=== PATIENT | female | born 1995 | race Caucasian/White ===

== ENCOUNTER 2017-03-02 19:24 | Inpatient (IN) | payer OTHER ==
[~2017-03-02] VITALS: Ht 160 cm; Wt 82.0 kg
[~2017-03-02 19:24] MED LIST: APRI1 EACH PO; KEFLEX500 MG PO; NAPROSYN500 MG PO; NORCO 5-325 TA1 EACH PO; VALIUM5 MG PO
--- NOTE | 2017-03-02 22:19 | NUR ---
03/02/172218 Elda Garner 2200 RESP EVEN AND UNLABORED. PT AWAKE AND TALKING. IV INFUSING IN RIGHT HAND, LR WITH 20 PIT. SKIN PINK AND PT DENINES PAIN OR NAUSEA. PT DENINES ANY SOB.
--- NOTE | 2017-03-03 10:50 | PR ---
[facility] [address] [place] [address] Signed PP Progress Notes Datetime Report Generated by CPN: 03/03/2017 10:50 SUBJECTIVE: [id number] Pain: Within normal limits Nausea/Vomiting: Denies Vital Signs: [id number] Vital Signs: Reviewed; Within Normal Limits Notable Details: PP Hgb/Hct = 14.0/40.4 EXAM: [id number] Abdomen/Uterus: Normal Lochia: Normal Extremities: Normal Incision: Normal IMPRESSION/PLAN/PROCEDURES: [id number] Impression: Normal progression Plan: Continue present management Procedures: None Progress Notes: Doing well, without complaint. Montelongo out after lunch. Signing Physician: Ortega De Jesus MD CC: *Electronically Signed* 03/03/17 1050 ORTEGA DE JESUS MD PATIENT NAME: RAY CHANCE PROGRESS NOTE DATE OF : [birth year] PHYSICIAN: ORTEGA DE JESUS MD RPT #: [id number] REPORT IS CONFIDENTIAL AND NOT TO BE RELEASED WITHOUT AUTHORIZATION
--- NOTE | 2017-03-03 15:27 | OR ---
[facility] [address] [place] [id number] Signed DATE OF OPERATION: 03/02/2017 SURGEON: Khanh De Jesus MD Patient of Dr. De Jesus. PREOPERATIVE DIAGNOSIS: labor, breech presentation. POSTOPERATIVE DIAGNOSIS: labor, breech presentation. PROCEDURE: Primary low transverse segment section. Delivery of live male . [employer]: Dr. Iyer. ANESTHESIA: Spinal. ESTIMATED BLOOD LOSS: 500 mL. COMPLICATIONS: None. DRAINS: [place]el[place] to bladder. FINDINGS: Live male in breech RSA presentation, normal uterus, with a nuchal cord around the neck once loosely. Normal tubes and ovaries, bilateral. DESCRIPTION OF PROCEDURE: The patient was brought into the operating room, placed in supine position. After adequate spinal anesthesia was obtained, was prepped and draped in usual sterile fashion. A [place]elongo catheter was placed in the bladder. Pfannenstiel skin incision was made with a scalpel and extended through subcutaneous tissue with the Bovie and the scalpel. Subcutaneous tissue was nicked with scalpel and extended in transverse fashion Electronically Signed By: KHANH DE JESUS MD 03/03/17 1527 PATIENT NAME: RAY CHANCE OPERATIVE REPORT DATE OF : 93 PHYSICIAN: KHANH DE JESUS MD REPORT #: [id number] REPORT IS CONFIDENTIAL AND NOT TO BE RELEASED WITHOUT AUTHORIZATION [address] [place], [place] [address] Signed using curved scissors. The underlying abdominal musculature was bluntly and sharply from the fascia above and below the incision. The abdominal musculature was bluntly and sharply along the midline. The peritoneum was opened with finger dissection, extended in vertical fashion using Metzenbaum scissors. Yoel self-retaining retractor was inserted into the incision and tightened in place. The lower uterine segment was identified and noted to be wide enough for delivery and so a small skin incision was made with the scalpel. Clear fluid came from the incision. The incision was extended in transverse fashion using finger dissection. The infant was noted to be in breech right sacrum anterior presentation. The 's buttocks delivered. The legs individually delivered. Baby delivered back up to the arms, which were then delivered individually and the cord was noted to be around the neck once, this was removed and the head delivered. The cord was doubly clamped and cut while the 's nose and mouth were gently suctioned with bulb syringe. The was passed off stable in good condition to the waiting tape fastener machine operator. Segment of cord was collected for cultures and then the placenta manually removed. The uterine cavity explored with a lap pad to remove any retained membranes. Angle stitch of 0 Monocryl was placed in one end of the incision and running locking stitch of 0 Monocryl starting at the other end used to close the incision. The 2nd running stitch of 0 Monocryl was used to imbricate the 1st layer. There was a small amount of bleeding at the left angle. This was controlled with single stitch of 0 Monocryl suture. The entire pelvis was irrigated, suctioned, and examined and noted to have good hemostasis. The Yoel retractor was removed. The sheet of ACell placed over lower uterine segment to help with healing. The anterior wall peritoneum was then closed using running stitch of 3-0 Vicryl suture. The abdominal musculature was reapproximated using interrupted stitches of 0 Vicryl suture. The abdominal wall incision was irrigated, suctioned, examined, any superficial bleeding spots cauterized with the Bovie. Powdered ACell sprinkled on the abdominal muscle and then the fascia closed using two running stitches of 0 Vicryl suture meeting in the midline. Subcutaneous tissue was irrigated, suctioned examined, any bleeding spots were cauterized with the Bovie. Subcutaneous tissue was sprinkled with remaining powdered ACell and then closed using interrupted stitches of 3-0 Vicryl suture. The skin was reapproximated using skin clips. The patient tolerated the procedure well and went to recovery room in good condition. The sponge, needle, and instrument count was correct at the end of procedure. Placenta was sent to Pathology for evaluation and again segment of cord sent for cultures. Khanh De Jesus MD MJB/MODL Electronically Signed By: KHANH DE JESUS MD 03/03/17 1527 PATIENT NAME: RAY CHANCE OPERATIVE REPORT DATE OF : 93 PHYSICIAN: KHANH DE JESUS MD REPORT #: [id number] REPORT IS CONFIDENTIAL AND NOT TO BE RELEASED WITHOUT AUTHORIZATION [address] [address] Signed /[id number] Electronically Signed By: KHANH DE JESUS MD 03/03/17 1527 PATIENT NAME: RAY CHANCE SABA OPERATIVE REPORT DATE OF : 93 PHYSICIAN: KHANH DE JESUS MD REPORT #: [id number] REPORT IS CONFIDENTIAL AND NOT TO BE RELEASED WITHOUT AUTHORIZATION
--- NOTE | 2017-03-04 09:18 | PR ---
[facility] [address] [place] [address] Signed PP Progress Notes Datetime Report Generated by CPN: 03/04/2017 09:17 SUBJECTIVE: [id number] Pain: Within normal limits Nausea/Vomiting: Denies Vital Signs: [id number] Vital Signs: Reviewed; Within Normal Limits Notable Details: PP Hgb/Hct = 14.0/40.4 EXAM: [id number] Abdomen/Uterus: Normal Lochia: Normal Extremities: Normal Incision: Normal IMPRESSION/PLAN/PROCEDURES: [id number] Impression: Normal progression Plan: Continue present management Procedures: None Progress Notes: Doing well, without complaint. Signing Physician: Ortega Pineda MD CC: *Electronically Signed* 03/04/17 0917 ROTEGA PINEDA MD PATIENT NAME: RAY CHANCE PROGRESS NOTE DATE OF : 93 PHYSICIAN: ORTEGA PINEDA MD RPT #: [id number] REPORT IS CONFIDENTIAL AND NOT TO BE RELEASED WITHOUT AUTHORIZATION
--- NOTE | 2017-03-05 10:47 | PR ---
[facility] [address] [place] [address] Signed PP Progress Notes Datetime Report Generated by CPN: 03/05/2017 10:47 SUBJECTIVE: [id number] Pain: Within normal limits Nausea/Vomiting: Denies Vital Signs: [id number] Vital Signs: Reviewed; Within Normal Limits Notable Details: PP Hgb/Hct = 14.0/40.4 EXAM: [id number] Abdomen/Uterus: Normal Lochia: Normal Extremities: Normal Incision: Normal IMPRESSION/PLAN/PROCEDURES: [id number] Impression: Normal progression Plan: Discharge Procedures: None Progress Notes: Doing well, ready to go home, but baby needs to stay. Signing Physician: Ortega Pineda MD CC: *Electronically Signed* 03/05/17 1047 ORTEGA PINEDA MD PATIENT NAME: RAY CHANCE PROGRESS NOTE DATE OF : 93 PHYSICIAN: ORTEGA PINEDA MD RPT #: [id number] REPORT IS CONFIDENTIAL AND NOT TO BE RELEASED WITHOUT AUTHORIZATION
== END 2017-03-05 12:00 | disposition home or self-care (01) | DRG 766 ==
LOC: FBCO 19:24 → FBC 20:28 → MS 03-03 13:50 → FBC 03-03 15:57 → FBCO 04-13 13:33
PROVIDERS: ADMIT Obstetrics & Gynecology
PROC: 10D00Z1 Extraction of Products of Conception, Low, Open Approach (ICD-10-PCS; principal; 2017-03-02 20:52)
DX: O60.14X0 Preterm labor third trimester with preterm delivery third trimester, not applicable or unspecified (principal); O69.81X0 Labor and delivery complicated by cord around neck, without compression, not applicable or unspecified; O32.1XX0 Maternal care for breech presentation, not applicable or unspecified; O28.2 Abnormal cytological finding on antenatal screening of mother; Z3A.34 34 weeks gestation of pregnancy; Z87.891 Personal history of nicotine dependence; Z37.0 Single live birth
CPT/HCPCS: 01961; 36415; 85027; 88307; C1763; J0690; J1100; J2274; J2370; J2405; J2590; J3010

== ENCOUNTER 2024-06-21 19:13 | Emergency (ER) | payer OTHER ==
[~2024-06-21] VITALS: Ht 160 cm; Wt 90.2 kg
[2024-06-21 20:11] LABS: BASOPHILS 0.2 % (0-2); EOSINOPHILS 0.7 % (0-6); HEMATOCRIT 39.9 % (35.0-50.0); HEMOGLOBIN 13.8 g/dL (12.0-18.0); LYMPHOCYTES 24.5 % (24-44); MCHC 34.6 g/dl (30-36); MCV 92.4 fl (81-99); MONOCYTES 7.9 % (0-12); NEUTROPHILS 66.7 % (39-80); PLATELET COUNT 283 K/uL (140-440); RBC 4.33 M/ul (4.3-5.7); RDW 13.1 (10.5-15.0)
[2024-06-21 20:28] LABS: ABO A; RH POSITIVE
[2024-06-21 20:46] LABS: ALBUMIN 3.9 g/dL (3.4-5.0); ALBUMIN/GLOBULIN RATIO 1.18 (1.1-2.4); BILIRUBIN, TOTAL 0.3 mg/dL (0.2-1.0); BUN/CREATININE RATIO 16.66 (6.0-28.6); CALCIUM 8.8 mg/dL (8.5-10.1); CREATININE, SERUM 0.72 mg/dL (0.55-1.02); PROTEIN, TOTAL 7.2 g/dL (6.4-8.2)
[2024-06-21 21:34] VITALS: BP 123/65
== END 2024-06-21 21:36 | disposition home or self-care (01) ==
LOC: ED 19:13
PROVIDERS: Family Medicine
DX: O99.891 Other specified diseases and conditions complicating pregnancy (principal); R25.2 Cramp and spasm; F17.200 Nicotine dependence, unspecified, uncomplicated; Z3A.01 Less than 8 weeks gestation of pregnancy
CPT/HCPCS: 36415; 76801; 76817; 80053; 84702; 85025; 86900; 86901; 99284-25

== ENCOUNTER 2024-11-19 09:41 | Emergency (ER) | payer OTHER ==
[~2024-11-19] VITALS: Ht 160 cm; Wt 86.0 kg
[2024-11-19 11:42] VITALS: BP 105/28
== END 2024-11-19 11:43 | disposition home or self-care (01) ==
LOC: ED 09:41
DX: S50.11XA Contusion of right forearm, initial encounter (principal); V49.9XXA Car occupant (driver) (passenger) injured in unspecified traffic accident, initial encounter
CPT/HCPCS: 73030; 99284